=== PATIENT | female | born 1990 | race Two or more races ===

== ENCOUNTER 2018-02-26 17:58 | Emergency (ER) | payer MEDICAID ==
[~2018-02-26] VITALS: Ht 162.6 cm; Wt 52.0 kg
[2018-02-27] MEDS ORDERED: ONDANSETRON HCL 4MG/2ML INJ IV ONE
[2018-02-27 01:06] LABS: CLARITY URINE CLOUDY (CLEAR); COLOR URINE YELLOW (YELLOW); KETONES URINE TRACE (NEGATIVE); LEUKOCYTE ESTERASE URINE 2+ (NEGATIVE); NITRITE URINE NEGATIVE (NEGATIVE); OCCULT BLOOD URINE NEGATIVE (NEGATIVE); PROTEIN URINE 1+ (NEGATIVE); SPECIFIC GRAVITY URINE 1.026 (1.005-1.030); UROBILINOGEN URINE 0.2 E.U./dL (0.2-1.0)
[2018-02-27] MEDS ORDERED: LEVOFLOXACIN 500MG TABLET PO ONE (01:30)
[2018-02-27 01:33] LABS: *AMPHETAMINES SCREEN URINE NEGATIVE (NEGATIVE); *BARBITURATES SCREEN URINE NEGATIVE (NEGATIVE); *BENZODIAZEPINES SCREEN URINE NEGATIVE (NEGATIVE); *COCAINE SCREEN URINE NEGATIVE (NEGATIVE); CANNABINOID URINE SCREEN NEGATIVE (NEGATIVE); METHADONE URINE SCREEN NEGATIVE (NEGATIVE); OPIATES URINE SCREEN NEGATIVE (NEGATIVE); PHENCYCLIDINE URINE SCREEN NEGATIVE (NEGATIVE)
[2018-02-27 03:11] VITALS: BP 121/72
== END 2018-02-27 03:15 | disposition home or self-care (01) ==
LOC: ER 17:58
DX: N39.0 Urinary tract infection, site not specified (principal); N83.202 Unspecified ovarian cyst, left side; R03.0 Elevated blood-pressure reading, without diagnosis of hypertension
CPT/HCPCS: 76830; 76856; 80305; 81003; 81025; 87086; 96374; 99285; J2405

== ENCOUNTER 2024-10-28 21:15 | Emergency (ER) | payer MEDICAID ==
[~2024-10-28] VITALS: Ht 160 cm; Wt 70.0 kg
[2024-10-28 21:37] VITALS: O2SAT 100
[2024-10-29] MEDS: ACETAMINOPHEN 325MG TABLET PO ONE (00:09)
[2024-10-29 00:35] LABS: CLARITY URINE CLEAR (CLEAR); COLOR URINE YELLOW (YELLOW); GLUCOSE URINE NEGATIVE (NEGATIVE); KETONES URINE NEGATIVE (NEGATIVE); NITRITE URINE NEGATIVE (NEGATIVE); OCCULT BLOOD URINE NEGATIVE (NEGATIVE); PH URINE 5.5 (4.5-8.0); PROTEIN URINE NEGATIVE (NEGATIVE); SPECIFIC GRAVITY URINE 1.023 (1.005-1.030)
[2024-10-29 00:36] LABS: LEUKOCYTE ESTERASE URINE NEGATIVE (NEGATIVE); UROBILINOGEN URINE 1.0 E.U./dL (0.2-1.0)
[2024-10-29 02:10] VITALS: BP 108/57; PULSE 74; RESP 19; TEMP 36.6; O2SAT 100
== END 2024-10-29 00:15 | disposition home or self-care (01) ==
LOC: ER 21:15
DX: O26.892 Other specified pregnancy related conditions, second trimester (principal); O99.312 Alcohol use complicating pregnancy, second trimester; M54.50 Low back pain, unspecified; F10.90 Alcohol use, unspecified, uncomplicated; Z3A.16 16 weeks gestation of pregnancy; Y90.9 Presence of alcohol in blood, level not specified
CPT/HCPCS: 76805; 81003; 99284